=== PATIENT | female | born 1970 | race Caucasian/White ===

== ENCOUNTER → 2016-10-27 | Outpatient (CLI) | payer OTHER ==
--- NOTE | ~2016-10-27 | MR189 ---
[facility] A Service [facility] RADIOLOGY TEXT RESULTS PATIENT: MANINDER LEE LOCATION: [facility] : 68 UNIT #: [id number] AGE: [address]: Charlie Gay II, MD SEX: F ORDER DR: [id number] [facility]. [place], [place] [address] [id number] O MR#: [id number] Acc #: [id number] NAME: MANINDER LEE : 1970 SEX: F STUDY DATE/TIME: 10/27/2016 7:34 UNIT: [facility] ROOM: STUDY DESCRIPTION: MRV Head Wo Contrast Attending Physician: Charlie Gay II., M.D. Referring Physician: Charlie Gay II., M.D. Ordering Physician: Charlie Gay II., M.D. Primary Care Physician: Generic Doctor Not In System MRI CENTER REPORT This report is preliminary unless electronic signature is present. EXAM MR venogram brain dated 10/27/2016 COMPARISON None HISTORY Chronic migraines for 10 years, increasing steadily with blurred vision and nausea. FINDINGS Source and 3-D reconstruction MIP images of the MR venogram of the dural venous sinuses were performed as per the protocol. Superior sagittal sinus, straight sinus, bilateral transverse sinuses, sigmoid sinuses and the visualized portions of the internal cerebral veins do not demonstrate any significant abnormality. IMPRESSION Within normal limits. Dictated by... Daniela Womack M.D. THIS IS AN ELECTRONICALLY VERIFIED REPORT Daniela Womack M.D. at 10/28/2016 3:46 PM CPR/rnr TD: 10/27/2016 16:13 JOB #: [id number] [facility] A Service [facility] RADIOLOGY TEXT RESULTS PATIENT: MANINDER LEE LOCATION: [facility] : 68 UNIT #: [id number] AGE: [address]: Charlie Gay II, MD SEX: F ORDER DR: MRI CENTER REPORT Page 1 of 1 COPY
== END | disposition home or self-care (01) ==
LOC: CMRI 07:14
DX: R51 Headache (principal); R90.89 Other abnormal findings on diagnostic imaging of central nervous system; H53.9 Unspecified visual disturbance
CPT/HCPCS: 70544

== ENCOUNTER → 2016-12-09 | Outpatient (CLI) | payer OTHER ==
--- NOTE | ~2016-12-09 | XA198 ---
[facility] A Service of [facility] RADIOLOGY TEXT RESULTS PATIENT: MANINDER LEE LOCATION: [facility] : [birth year] UNIT #: [id number] AGE: [address]: BAYLEE MIDDLETON APRN SEX: F ORDER DR: [id number] [facility] [address] [place], [place] [address] [id number] O MR#: [id number] Acc #: [id number] NAME: MANINDER LEE : 1970 SEX: F STUDY DATE/TIME: 12/09/2016 9:13 UNIT: [facility] ROOM: STUDY DESCRIPTION: XA Spinal Puncture Attending Physician: Baylee Middleton Aprn Referring Physician: Baylee Middleton Aprn Ordering Physician: Charlie Gay II., M.D. Primary Care Physician: Generic Doctor Not In System MEDICAL IMAGING REPORT This report is preliminary unless electronic signature is present EXAM Fluoroscopically guided lumbar puncture. INDICATION Chronic migraine for 10 years which have steadily worsened. The patient also reports blurred vision and nausea. PROCEDURE The risks, benefits and alternatives to the procedure were explained to the patient, and signed, informed consent was obtained. She was placed prone on the angiographic table and was prepped and draped in the usual sterile fashion. Time out was performed as per protocol, skin and subcutaneous tissues were anesthetized with buffered lidocaine and the 20-gauge spinal needle was advanced into the spinal canal. Opening pressure was found to be 27. I subsequently removed about 10-12 mL of clear CSF and closing pressure was found to be 16. Total fluoroscopy time was 1.1 minutes, AK was 159 mGy. IMPRESSION Technically successful fluoroscopically guided lumbar puncture as noted above. Fluoroscopy was used during the procedure and permanent images were saved. Dictated by... Maggie Silva M.D. THIS IS AN ELECTRONICALLY VERIFIED REPORT Maggie Silva M.D. at 12/16/2016 3:39 PM AFF/jt TD: 12/14/2016 17:23 JOB #: [id number] [facility] A Service of [facility] RADIOLOGY TEXT RESULTS PATIENT: MANINDER LEE LOCATION: [facility] #: [id number] : [birth year] UNIT #: [id number] AGE: [address]: BAYLEE MIDDLETON APRN SEX: F ORDER DR: MEDICAL IMAGING REPORT Page 1 of 1 COPY
[2016-12-09 08:04] LABS: HEMATOCRIT 38.3 % (35.0-45.0); HEMOGLOBIN 12.3 gm/dL (12.0-16.0); MEAN CELL VOLUME 92.1 FL (83-96); MEAN CORPUSCULAR HEMOGLOBIN 29.6 PG (28-34); MEAN CORPUSCULAR HGB CONC 32.2 g/dL (30-36); MEAN PLATELET VOLUME 6.7 FL (6.5-11.5); RED BLOOD COUNT 4.16 X10e (3.90-5.30); RED CELL DISTRIBUTION WIDTH 14.3 % (11.0-15.5); WHITE BLOOD COUNT 13.1 X10e3 (4.0-10.5)
[2016-12-09 08:21] LABS: INR 0.9; PARTIAL THROMBOPLASTIN TIME 28.4 SECONDS (23.5-31.3); PROTHROMBIN TIME (PATIENT) 9.6 SECONDS (9.6-11.5)
== END | disposition home or self-care (01) ==
LOC: CIVR 12-02 09:00
PROVIDERS: Nurse Practitioner Family
DX: H53.9 Unspecified visual disturbance (principal); R51 Headache; R90.89 Other abnormal findings on diagnostic imaging of central nervous system
CPT/HCPCS: 36415; 77003; 85027; 85610; 85730; C1713